=== PATIENT | female | born 1950 | race African-American/Black ===

== ENCOUNTER → 2017-01-28 | Outpatient (CLI) | payer MEDICARE, OTHER | END | disposition home or self-care (01) | LOC: PCVCCLINIC 15:10 | PROVIDERS: ATTEND Internal Medicine | DX: I34.0 Nonrheumatic mitral (valve) insufficiency (principal); R01.1 Cardiac murmur, unspecified; I10 Essential (primary) hypertension; E78.5 Hyperlipidemia, unspecified; Z87.891 Personal history of nicotine dependence; Z79.899 Other long term (current) drug therapy | CPT/HCPCS: 80061; 93005; G0463 ==

== ENCOUNTER → 2017-02-14 | Outpatient (CLI) | payer MEDICARE, OTHER ==
[~2017-02-14] MED LIST: BENZOCAINE ONE 20% MUCOSAL SPRAY.; IV NORMAL SALINE 1000ML BAG 1,000 ML ONE; MIDAZOLAM HCL/PF 2 MG/2 ML VIAL. ONE; fentaNYL PF VIAL 100 MCG/2 ML VIAL ONE
--- NOTE | 2017-02-14 16:34 | PCVCIMAG ---
APPROVED REPORT Study performed: 02/14/2017 09:19:50 EXAM: Comprehensive 2D, Doppler, and color-flow Echocardiogram Patient Location: [facility] Status: routine BSA: 1.89 HR: 65 bpmBP: 139/77 mmHg Rhythm: NSR Other Information Study Quality: Good Indications Mitral Valve Disease Echo Enhancing Agent Indication: Rule out Shunt Agent(s) / Amount(s) Used: Agitated Saline cc Comments: Negative contrast study for shunt flow. Procedure After obtaining informed consent, patient underwent transesophageal echo in the [employer]. Type of Sedation : Conscious Sedation Sedation was administered by Nga Coto RN. Sedation was achieved intravenously with: Versed (4mg) Fentanyl (150mcg) Transesophageal probe was inserted and advanced into esophagus without difficulty by Franklin Brooks MD. Echo enhancement indication: R/O Septal defect. Echo enhancement agent administered: Agitated Saline The JOHNATHAN was performed without complications. Throughout the procedure, the blood pressure, pulse oximetry, cardiac rhythm, and rate were monitored. The patient tolerated the procedure without adverse effects. Recovery from conscious sedation was uneventful and vital signs were stable. Left Ventricle The left ventricle is normal size. There is normal LV segmental wall motion. There is normal left ventricular wall thickness. The left ventricular systolic function is normal. The left ventricular ejection fraction is within the normal range. LVEF is 60%. Right Ventricle The right ventricle is normal size. The right ventricular systolic function is normal. Atria The left atrium size is normal. Interatrial septum is intact without evidence of ASD or PFO. Aortic Valve The aortic valve is normal in structure. No aortic regurgitation is present. There is no aortic valvular stenosis. Mitral Valve Redundancy to the tip of the anterior mitral leaflet or chordal structure, not thought to represent a pathalogic process. Mild to moderate mitral regurgitation. Tricuspid Valve The tricuspid valve is normal in structure. Trace tricuspid regurgitation. Pulmonic Valve The pulmonary valve is normal in structure. There is no pulmonic valvular regurgitation. Great Vessels The aortic root is normal in size. The ascending aorta is normal in size. Pericardium There is no pericardial effusion. <Conclusion> The left ventricular systolic function is normal. There is normal LV segmental wall motion. LVEF 60%. No masses or clots in the left atrium or left atrial appendage. No shunting by contrast bubble injection The aortic valve is normal in structure. No aortic regurgitation or stenosis Redundancy to the tip of the anterior mitral leaflet or chordal structure , not thought to represent a pathalogic process. Mild to moderate mitral regurgitation. Normal aorta There is no pericardial effusion.
== END | disposition home or self-care (01) ==
LOC: PCVCINTER 09:02
PROVIDERS: ATTEND Internal Medicine
DX: I08.1 Rheumatic disorders of both mitral and tricuspid valves (principal)
CPT/HCPCS: 93312; 93325; 99152; 99153; J2250; J3010; J7030

== ENCOUNTER → 2018-02-17 | Outpatient (CLI) | payer MEDICARE, OTHER ==
--- NOTE | 2018-02-17 10:02 | PCVCIMAG ---
APPROVED REPORT Study performed: 02/17/2018 08:43:44 EXAM: Comprehensive 2D, Doppler, and color-flow Echocardiogram Patient Location: Echo lab Status: routine BSA: 1.89 HR: 73 bpmBP: 134/80 mmHg Rhythm: NSR Other Information Study Quality: Adequate Risk Factors: Cardiac Risk Factors: HTN Indications Murmur mitral regurgitation 2D Dimensions IVSd: 10.95 (7-11mm) LVDd: 32.86 mm PWd: 8.70 (7-11mm)Ascending Ao: 33.75 (22-36mm) LVDs: 24.75 (25-40mm) Left Atrium: 35.48 (27-40mm) Aortic Root: 24.70 mm LV Single Plane 4CH: 68.11 % LV Single Plane 2CH: 72.72 % Biplane EF: 71.5 % Volumes Left Atrial Volume (Systole) Single Plane 4CH: 49.08 mLSingle Plane 2CH: 42.95 mL LA ESV Index: 26.00 mL/m2 Aortic Valve AoV Peak Manolo.: 2.00 m/s AO Peak Gr.: 15.97 mmHgLVOT Max P.67 mmHg LVOT Max V: 1.47 m/s Mitral Valve E/A Ratio: 0.7 MV Decel. Time: 241.92 ms MV E Max Manolo.: 0.51 m/s MV A Manolo.: 0.69 m/s MV PHT: 70.16 ms IVRT: 100.35 ms Pulmonary Valve PV Peak Manolo.: 1.13 m/sPV Peak Gr.: 5.15 mmHg Pulmonary Vein P Vein S: 0.30 m/sP Vein A: 0.38 m/s P Vein D: 0.39 m/sP Vein A Dur.: 96.9 msec P Vein S/D Ratio: 0.77 Tricuspid Valve TR Peak Manolo.: 2.41 m/s TR Peak Gr.: 23.25 mmHg Left Ventricle The left ventricle is normal size. There is normal LV segmental wall motion. There is normal left ventricular wall thickness. Left ventricular systolic function is normal. The left ventricular ejection fraction is within the normal range. LVEF is 65%. Grade I - abnormal relaxation pattern. Right Ventricle The right ventricle is normal size. The right ventricular systolic function is normal. Atria The left atrium size is normal. The right atrium size is normal. Aortic Valve The aortic valve is normal in structure. No aortic regurgitation is present. There is no aortic valvular stenosis. Mitral Valve Non-specific anterior leaflet thickening/redundancy Mild-moderate mitral regurgitation. No evidence of mitral valve stenosis. Tricuspid Valve The tricuspid valve is normal in structure. There is no tricuspid valve regurgitation noted. Pulmonic Valve The pulmonary valve is normal in structure. There is no pulmonic valvular regurgitation. Great Vessels The aortic root is normal in size. IVC is normal in size and collapses >50% with inspiration. Pericardium There is no pericardial effusion. There is no pleural effusion. <Conclusion> Left ventricular systolic function is normal. There is normal LV segmental wall motion. LVEF is 65%. Grade I diastolic dysfunction The aortic valve is normal in structure. No aortic regurgitation or stenosis Non-specific anterior leaflet thickening/redundancy. Mild-moderate mitral regurgitation. Pulmonary artery pressure of 25mmHg There is no pericardial effusion.
== END | disposition home or self-care (01) ==
LOC: PCVCIMAG 09:38
PROVIDERS: ATTEND Internal Medicine
DX: I34.0 Nonrheumatic mitral (valve) insufficiency (principal); R01.1 Cardiac murmur, unspecified; I10 Essential (primary) hypertension; E78.5 Hyperlipidemia, unspecified; M19.90 Unspecified osteoarthritis, unspecified site; F32.9 Major depressive disorder, single episode, unspecified; M81.0 Age-related osteoporosis without current pathological fracture; Z87.891 Personal history of nicotine dependence
CPT/HCPCS: 36415; 80061; 93005; 93306; G0463